=== PATIENT | female | born 1990 | race Caucasian/White ===

== ENCOUNTER 2023-10-11 21:14 | Inpatient (IN) | payer MEDICAID ==
[~2023-10-11] VITALS: Ht 154.9 cm; Wt 77.1 kg
[2023-10-11 21:15] VITALS: BP_SYST 138; PULSE 86; RESP 17; TEMP 98.2; O2SAT 98
[2023-10-11] MEDS ORDERED: HYDROmorphone 1 MG/ML INJ. CARTRIDGE IVP ONE (21:30)
[2023-10-11] MEDS ORDERED: ONDANSETRON HCL 4 MG/2 ML VIAL IVP ONE (22:00)
[2023-10-11 22:03] LABS: BASOPHILS % (AUTO) 0.2 % (0.0-2.0); HEMATOCRIT 38.5 % (36-48); HEMOGLOBIN 13.3 g/dL (12.0-16.0); LYMPHOCYTES # (AUTO) 2.3 K/uL (1.0-5.5); LYMPHOCYTES % (AUTO) 17.2 % (20.5-51.5); MEAN CORPUSCULAR HEMOGLOBIN 30 pg (27-31); MEAN CORPUSCULAR HGB CONC 35 % (32-36); MEAN CORPUSCULAR VOLUME 88 fL (79.0-98.0); MONOCYTES # (AUTO) 0.3 K/uL (0.0-1.0); MONOCYTES % (AUTO) 2.3 % (1.7-9.3); NEUTROPHILS # (AUTO) 10.8 K/uL (1.8-7.7); NEUTROPHILS % (AUTO) 80.3 % (40.0-70.0); PLATELET COUNT (AUTO) 574 K/uL (130-430); RED BLOOD CELL COUNT(AUTO) 4.37 MIL/uL (4.2-6.2); RED CELL DISTRIBUTION WIDTH 13.9 % (9.0-15.0); WHITE BLOOD COUNT (AUTO) 13.4 K/uL (4.8-10.8)
[2023-10-11 22:07] LABS: CALCIUM 8.4 mg/dL (8.4-11.0); CREATININE 0.85 mg/dL (0.55-1.30)
[2023-10-11 23:20] LABS: BILIRUBIN,URINE 1+ (NEGATIVE); CLARITY/URINE SL CLOUDY (CLEAR); COLOR,URINE YELLOW (YELLOW); GLUCOSE,URINE NEGATIVE (NEGATIVE); KETONES,URINE 3+ (NEGATIVE); LEUKOCYTE ESTERASE ,URINE NEGATIVE (NEGATIVE); NITRITE, URINE NEGATIVE (NEGATIVE); PROTEIN URINE 2+ (NEGATIVE)
[2023-10-11 23:24] LABS: BLOOD, URINE TRACE (NEGATIVE)
[2023-10-11] MEDS ORDERED: DIPHENHYDRAMINE INJ 50 MG/ML VIAL IVP PRN (23:30)
[2023-10-11] MEDS ORDERED: MORPHINE 4 MG INJ. 4 MG/ML VIAL IVP ONE (23:30)
[2023-10-11 23:41] LABS: BACTERIA,URINE FEW /HPF (None Seen); RBC,URINE 0-3 /HPF (0-3)
[2023-10-11 23:42] LABS: MUCUS,URINE 3+ /LPF (None Seen)
[2023-10-12] VITALS: BP_SYST 116; PULSE 76; RESP 18; TEMP 97.9; O2SAT 97
[2023-10-12] MEDS: MORPHINE 4 MG INJ. 4 MG/ML VIAL IVP PRN ×3 (02:04→20:25)
[2023-10-12] MEDS: LR 1,000 ML IV SCH ×4 (02:06→21:45)
[2023-10-12] MEDS: ONDANSETRON HCL 4 MG/2 ML VIAL IVP PRN ×3 (03:24→21:41)
[2023-10-12 05:08] VITALS: BP_SYST 89; PULSE 54; RESP 18; TEMP 98.4; O2SAT 100
[2023-10-12] MEDS: NORMAL SALINE 5 ML DISP.SYRIN IVF SCH ×2 (06:00→13:42)
[2023-10-12 08:00] VITALS: BP_SYST 106; PULSE 55; RESP 17; TEMP 98; O2SAT 98
[2023-10-12 11:19] VITALS: BP_SYST 102; PULSE 56; RESP 15; TEMP 98.4; O2SAT 94
[2023-10-12 17:17] VITALS: BP_SYST 132; PULSE 60; RESP 16; TEMP 97.7; O2SAT 100
[2023-10-12 20:00] VITALS: BP_SYST 129; PULSE 103; RESP 22; TEMP 98; O2SAT 97
[2023-10-12] MEDS: HYDROmorphone 2 MG/ML VIAL IVP PRN (21:11)
[2023-10-13] MEDS: LR 1,000 ML IV SCH ×3 (04:25→17:45)
[2023-10-13] MEDS: NORMAL SALINE 5 ML DISP.SYRIN IVF SCH ×3 (06:00→22:00)
[2023-10-13 08:00] VITALS: BP_SYST 119; PULSE 61; RESP 16; TEMP 96.9; O2SAT 100
[2023-10-13] MEDS: HYDROmorphone 2 MG/ML VIAL IVP PRN ×2 (09:41→19:52)
[2023-10-13 10:58] VITALS: BP_SYST 122; PULSE 80; RESP 15; TEMP 97; O2SAT 99
[2023-10-13] MEDS: ONDANSETRON HCL 4 MG/2 ML VIAL IVP PRN (11:51)
[2023-10-13 14:08] LABS: HCG,QUAL RESULT NEGATIVE (NEGATIVE)
[2023-10-13] MEDS ORDERED: LR 1,000 ML IV.SOLN IV ONE (14:14)
[2023-10-13] MEDS ORDERED: ceFAZolin SODIUM 2 GM VIAL ONE (14:14)
[2023-10-13] MEDS ORDERED: DEXAMETHASONE SOD PHOSPHATE 4 MG/ML VIAL ONE (14:14)
[2023-10-13] MEDS ORDERED: ONDANSETRON HCL 4 MG/2 ML VIAL ONE (14:14)
[2023-10-13] MEDS ORDERED: SEVOFLURANE 15 MIN GAS INH ONE (14:14)
[2023-10-13] MEDS ORDERED: PROPOFOL 200MG/ 20ML VIAL (DIPRIVAN) IV ONE (14:14)
[2023-10-13] MEDS ORDERED: NS IRRIG SOLN 1000 ML IR ONE (14:14)
[2023-10-13] MEDS ORDERED: GLYCOPYRROLATE 0.2 MG/ML VIAL ONE (14:14)
[2023-10-13] MEDS ORDERED: ROCURONIUM BROMIDE 10 MG/ML (ZEMURON) ONE (14:14)
[2023-10-13] MEDS ORDERED: fentaNYL CITRATE/PF 100 MCG/2 ML AMP ONE ×2 (14:47→16:59)
[2023-10-13] MEDS ORDERED: MIDAZOLAM HCL 2 MG/2 ML VIAL (VERSED) ONE (14:47)
[2023-10-13] MEDS ORDERED: ACETAMINOPHEN I.V. 1000 MG 100 ML IV ONE (14:47)
[2023-10-13] MEDS ORDERED: NALOXONE HCL 0.4 MG/ML AMP (NARCAN) IVP PRN ×2 (15:45→16:30)
[2023-10-13] MEDS ORDERED: ONDANSETRON HCL 4 MG/2 ML VIAL IVP PRN ×2 (15:45→16:30)
[2023-10-13] MEDS ORDERED: fentaNYL CITRATE/PF 100 MCG/2 ML AMP IVP PRN ×2 (15:45)
[2023-10-13] MEDS ORDERED: LR 1,000 ML IV ONE (15:45)
[2023-10-13] MEDS ORDERED: HYDROmorphone 1 MG/ML INJ. CARTRIDGE IVP PRN (15:45)
[2023-10-13] MEDS ORDERED: OXYCODONE/ACETAMINOPHEN 5-325 TABLET PO PRN ×2 (16:30)
[2023-10-13] MEDS: D5LR 1,000 ML IV SCH (16:30)
[2023-10-13] MEDS ORDERED: HYDROcodone/ACETAMIN 5-325 MG TAB (NORCO/ VICODIN) PO PRN (16:30)
[2023-10-13] MEDS ORDERED: HYDROmorphone 1 MG/ML INJ. CARTRIDGE ONE (17:05)
[2023-10-13] MEDS: KETOROLAC TROMETHAMINE 30 MG VIAL IVP PRN (18:19)
[2023-10-13] MEDS: SIMETHICONE 80 MG TAB.CHEW PO SCH ×2 (18:27→21:19)
[2023-10-13 19:49] VITALS: BP_SYST 122; PULSE 80; RESP 22; TEMP 98.4; O2SAT 99
[2023-10-14] MEDS: HYDROmorphone 2 MG/ML VIAL IVP PRN (00:17)
[2023-10-14] MEDS: LR 1,000 ML IV SCH ×2 (00:25→07:05)
[2023-10-14 00:44] VITALS: BP_SYST 118; PULSE 67; RESP 17; TEMP 98.4; O2SAT 98
[2023-10-14] MEDS: D5LR 1,000 ML IV SCH ×2 (02:30→08:58)
[2023-10-14] MEDS: KETOROLAC TROMETHAMINE 30 MG VIAL IVP PRN ×2 (02:53→09:08)
[2023-10-14] MEDS: NORMAL SALINE 5 ML DISP.SYRIN IVF SCH (02:58)
[2023-10-14 08:00] VITALS: BP_SYST 119; PULSE 68; RESP 17; TEMP 97.4; O2SAT 100
[2023-10-14] MEDS ORDERED: OXYC-128 PO (08:15)
[2023-10-14] MEDS: SIMETHICONE 80 MG TAB.CHEW PO SCH (08:58)
[2023-10-14] MEDS ORDERED: IBUP-2101 PO (11:11)
[2023-10-14 11:15] VITALS: BP_SYST 119; PULSE 68; RESP 17; TEMP 97.4; O2SAT 100
[2023-10-14 12:00] VITALS: BP_SYST 120; PULSE 72; RESP 18; TEMP 98; O2SAT 98
== END 2023-10-14 12:30 | disposition home or self-care (01) | DRG 513 ==
LOC: SED 21:14 → STU 10-12 00:12 → SMU 10-12 01:08
PROVIDERS: ADMIT Specialist; ATTEND Specialist
PROC: 0UT54ZZ Resection of Right Fallopian Tube, Percutaneous Endoscopic Approach (ICD-10-PCS; 2023-10-13)
PROC: 0UB14ZX Excision of Left Ovary, Percutaneous Endoscopic Approach, Diagnostic (ICD-10-PCS; 2023-10-13)
PROC: 0UT04ZZ Resection of Right Ovary, Percutaneous Endoscopic Approach (ICD-10-PCS; principal; 2023-10-13 14:45)
DX: N83.511 Torsion of right ovary and ovarian pedicle (principal); E66.9 Obesity, unspecified; D27.0 Benign neoplasm of right ovary; Z68.32 Body mass index [BMI] 32.0-32.9, adult; N92.6 Irregular menstruation, unspecified; N83.8 Other noninflammatory disorders of ovary, fallopian tube and broad ligament
CPT/HCPCS: 36415; 76856-TC; 80048; 81000; 81001; 81015; 84703; 85025; 86886; 86900; 86901; 87210-TC; 88108; 88305; 96374; 96375; 99285; C1727; J0131; J1100; J1170; J1200; J1885; J2270; J2405; J2704; J3010; J3465; J3490; J7120

== ENCOUNTER 2023-10-29 01:10 | Emergency (ER) | payer MEDICAID ==
[~2023-10-29] VITALS: Ht 152.4 cm; Wt 72.1 kg
[~2023-10-29 01:10] MED LIST: IBUP-2101 PO; OXYC-128 PO
[2023-10-29 01:17] VITALS: BP_SYST 128; PULSE 72; RESP 20; TEMP 97.6; O2SAT 99
[2023-10-29] MEDS ORDERED: cefTRIAXone 1 GM in LIDOCAINE 1%, 20 ML MDV 2.1 ML IM ONE (02:00)
[2023-10-29] MEDS ORDERED: ONDANSETRON 4 MG ODT TAB PO ONE (03:00)
[2023-10-29 03:46] LABS: BILIRUBIN,URINE NEGATIVE (NEGATIVE); BLOOD, URINE NEGATIVE (NEGATIVE); CLARITY/URINE CLEAR (CLEAR); COLOR,URINE YELLOW (YELLOW); GLUCOSE,URINE NEGATIVE (NEGATIVE); KETONES,URINE NEGATIVE (NEGATIVE); LEUKOCYTE ESTERASE ,URINE NEGATIVE (NEGATIVE); NITRITE, URINE NEGATIVE (NEGATIVE); PROTEIN URINE NEGATIVE (NEGATIVE); UROBILINOGEN,URINE 0.2 (0.2-1.0)
[2023-10-29] MEDS ORDERED: CEPH-548 PO (03:48)
[2023-10-29 03:52] VITALS: BP_SYST 128; PULSE 72; RESP 20; TEMP 97.6; O2SAT 99
== END 2023-10-29 03:51 | disposition home or self-care (01) ==
LOC: SED 01:10
DX: L03.316 Cellulitis of umbilicus (principal); Z88.5 Allergy status to narcotic agent; Z85.43 Personal history of malignant neoplasm of ovary; Z79.899 Other long term (current) drug therapy
CPT/HCPCS: 99283; 81001; 96372; 81003; Q0162; J0696; J2001